=== PATIENT | male | born 1945 | race Caucasian/White ===

== ENCOUNTER → 2019-08-12 09:30 | Outpatient (BNVA) | payer MEDICARE, SELFPAY | PROVIDERS: Family Provider Nurse Practitioner; PCP Nurse Practitioner; Visit Provider Nurse Practitioner | DX: I10 Essential (primary) hypertension (principal); E78.5 Hyperlipidemia, unspecified | CPT/HCPCS: 80053; 80061; 82306 ==

== ENCOUNTER → 2020-06-27 09:14 | Outpatient (BNVA) | payer MEDICARE, SELFPAY | PROVIDERS: Family Provider Nurse Practitioner; PCP Nurse Practitioner; Visit Provider Nurse Practitioner | DX: E55.9 Vitamin D deficiency, unspecified (principal); I10 Essential (primary) hypertension | CPT/HCPCS: 80053; 80061; 82306; 85025 ==

== ENCOUNTER → 2021-01-09 09:17 | Outpatient (BNVA) | payer MEDICARE, SELFPAY | PROVIDERS: Family Provider Nurse Practitioner; PCP Nurse Practitioner; Visit Provider Nurse Practitioner | DX: I10 Essential (primary) hypertension (principal); E55.9 Vitamin D deficiency, unspecified; E78.5 Hyperlipidemia, unspecified; I65.21 Occlusion and stenosis of right carotid artery | CPT/HCPCS: 80053; 80061; 82306; 84443; 85025 ==

== ENCOUNTER 2021-02-20 12:42 | Outpatient (CLI) | payer MEDICARE, SELFPAY ==
--- NOTE | 2021-02-20 13:30 | USCV_ITS ---
Flynn Maxwell Age: 75 Gender: M : 1945 Exam Date: 02/20/2021 12:56 Ordering Phys: Aracelis Singh Technologist: Gabrielle Tran Exam Location: [facility] – [place] Indication: RECHECK RCCA STENOSIS Risk Factors: Unknown Previous Vascular Surgery: None Right Brachial BP: / Left Brachial BP: / Right Left Velocity (cm/s) Spectral Plaque Velocity (cm/s) Spectral Plaque Syst/Diast Broadening Syst/Diast Broadening / Prox CCA 83.00 / 21.70 45.30/ 12.60 Mid CCA 50.40 / 8.90 47.90/ 7.00 Hetro Distal CCA 54.90 / 7.70 619.40/132.70 Hetro Prox ICA 68.90 / 12.80 687.30/128.00 Hetro Mid ICA 113.45/ 19.25 446.10/99.50 Distal ICA 99.50 / 20.30 106.00 Hetro ECA 61.87 15.18 ICA/CCA 2.53 Antegrade Vertebral Antegrade 92.00/ 21.10 cm/s 57.80/ 21.40 cm/s Tri Subclavian Tri 74.00 167.7 0 CONCLUSIONS High grade Right ICA stenosis with markedly elevated velocities. Recommend further evaluation with CTA.. Severe atheromatous plaque right carotid bulb/ICA. Left ICA stenosis <50%. Mild atheromatous plaque left carotid bulb/ICA. Normal antegrade Doppler flow noted in the right vertebral artery. Normal antegrade Doppler flow noted in the left vertebral artery. Gustavo Jaffe MD (Electronically Signed) Final Date: 20 February 2021 14:04 S
== END 2021-02-20 12:43 | disposition home or self-care (01) ==
LOC: RAD 12:48
PROVIDERS: PCP Nurse Practitioner; Visit Provider Nurse Practitioner
DX: I65.23 Occlusion and stenosis of bilateral carotid arteries (principal)
CPT/HCPCS: 93880

== ENCOUNTER 2021-03-08 07:46 | Outpatient (CLI) | payer MEDICARE, SELFPAY ==
--- NOTE | 2021-03-08 08:00 | CT_ITS ---
WS: [id number] CT ANGIOGRAM CAROTID ARTERIES HISTORY: I65.21 - Occlusion and stenosis of right carotid artery TECHNIQUE: CT angiogram is performed of the carotid arteries. During arterial injection imaging is ob tained from the skull base to the aortic arch in 1.25 mm imaging. Coronal and sagittal reformats are submitted, MIP imaging also reviewed. Additional multiplanar reformats of the carotid arteries are dillard bmitted. NASCET criteria utilized. All CT scans at [facility] use at least one of these d ose optimization techniques: automated exposure control; mA and/or kV adjustment per patient size (in cludes targeted exams where dose is matched to clinical indication); or iterative reconstruction. CONTRAST: Omnipaque 350; 95 mL IV. DLP: 968.12 mGycm COMPARISON: Carotid ultrasound 02/20/2021 Right carotid: Common carotid artery: Arises normally from the innominate artery. Calcified plaque and intimal thick ening is moderate at the bifurcation. Internal carotid artery: Large amount of calcified plaque and intimal thickening at the bifurcation. High-grade stenosis of the proximal RIGHT ICA. Stenosis 70-99%. External carotid artery: Patent with calcification proximally. Left carotid: Common carotid artery: Arises normally from the aortic arch. No significant stenosis. Internal carotid artery: Small amount of calcification at the bifurcation extending into the proximal ICA. ICA is small caliber with no high-grade stenosis. External carotid artery: Calcified plaque proximally with no stones or occlusion. Right vertebral artery: Unremarkable. Left vertebral artery: Small caliber LEFT vertebral artery. No occlusions. Subclavian arteries: No stenosis or abnormality identified. Upper thorax: Chronic emphysema. Thyroid gland: Normal. Osseous structures: Degenerative spondylitic changes in the cervical spine. No fractures. Skull base: Hypoplastic or atherosclerotic advanced disease within the LEFT A1 segment. CT/CT angio neck 06231 IMPRESSION: 1. Proximal RIGHT ICA stenosis 70-99%. Corresponds to the ultrasound findings. 2. Less than 50% stenosis LEFT ICA. 3. LEFT A1 segment hypoplasia or moderate atherosclerotic disease.
[2021-03-08 08:23] LABS: Blood Urea Nitrogen 10 mg/dL (8-23)
[2021-03-08] MEDS: iohexol 350 mg/mL 100 mL Btl IV (08:33)
== END 2021-03-08 07:47 | disposition home or self-care (01) ==
PROVIDERS: PCP Nurse Practitioner; Visit Provider Nurse Practitioner
DX: I65.23 Occlusion and stenosis of bilateral carotid arteries (principal)
CPT/HCPCS: 70498; 82565; 84520; Q9967

== ENCOUNTER 2021-04-17 14:28 | Inpatient (IN) | payer MEDICARE, SELFPAY ==
[2021-04-11 09:14] VITALS: BMI 27.5
--- NOTE | 2021-04-11 09:20 | ECG_ITS ---
[facility] Test Date: 2021-04-11 Pat Name: Flynn Maxwell Department: Room: Gender: Male Claims Adjuster: : 1945 Requested By: Anthony Phipps Order Number: [id number] Reading MD: SALMA TORIBIO Measurements Intervals [place] Rate: 72 P: 37 IN: 187 QRS: -22 QRSD: 94 T: 25 QT: 399 QTc: 438 Interpretive Statements SINUS RHYTHM ANTEROSEPTAL MYOCARDIAL INFARCTION , OF INDETERMINATE AGE [40+ ms Q WAVE IN V1-V4] No previous ECG available for comparison Electronically Signed On 04-11-2021 19:29:24 CDT by SALMA TORIBIO [email or web address]
[2021-04-11 10:00] LABS: Basophils # 0.1 10^3/uL (0.0-0.1); Basophils % 0.7 %; Eosinophils # 0.1 10^3/uL (0.0-0.8); Eosinophils % 1.2 %; Hematocrit 43.3 % (42.0-52.0); Hemoglobin 14.8 g/dL (11.7-16.6); Lymphocytes # 1.1 10^3/uL (0.8-4.8); Mean Corpuscular HGB Conc 34.2 g/dL (30.0-36.0); Mean Corpuscular Hemoglobin 30.6 pg (28.0-34.0); Mean Corpuscular Volume 89.5 fl (80-94); Mean Platelet Volume 9.5 fL (7.4-10.4); Monocytes # 1.1 10^3/uL (0.2-0.9); Monocytes % 11.1 %; Neutrophils # 7.41 10^3/uL (1.8-7.7); Nucleated Red Blood Cells % 0 %; Platelet Count 292 10^3/cmm (130-400); Red Blood Count 4.84 10^6/uL (4.1-5.3); Red Cell Distribution Width 11.9 % (12.1-15.1); White Blood Count 9.9 10^3/uL (4.0-10.0)
[2021-04-11 10:14] LABS: Anion Gap 13.5 (5-19); Blood Urea Nitrogen 9 mg/dL (8-23); Calcium 9.3 mg/dL (8.5-10.5); Carbon Dioxide 29 mmol/L (22-29); Chloride 88 mmol/L (98-107); Glucose 117 mg/dL (65-115); Osmolality Calculated 264 mOsm/kg (285-295); Potassium 3.5 mmol/L (3.5-5.1); Sodium 127 mmol/L (136-145)
[2021-04-11 10:35] LABS: Add Urine Microscopic? NO; Charge for UA Resulting for Rev
[2021-04-11 10:58] LABS: Bilirubin Urine Neg (Negative); Blood Urine Neg (Negative); Glucose Urine UA Norm (Normal); Ketones Urine Negative (Negative); Leukocyte Esterase Urine Negative (Negative); Nitrate Urine Negative (Negative); Protein Urine Neg (Negative); Sulfosalicylic Acid Urine Negative (Negative); Urine Appearance Clear (CLEAR); Urine Color Straw (Yellow); Urobilinogen Urine Norm (Negative); pH Urine 8 (5-7)
--- NOTE | 2021-04-11 16:01 | P.ANESASSM_ITS ---
Pre-Anesthetic Assessment Pre-Anesthetic Assessment: Height/Weight: Height 1.78 m Weight 87.09 kg Proposed Procedure: Operation Date: 04/16/21 08:30 Proposed Procedures p Carotid Endarterectomy(Right) - Alexandre Denise MD Was Beta Frankie taken within 24 hours: N/A Was Clonidine taken within 24 hours: N/A Social: Social History: Tobacco and No alcohol Exam: Pre-Anes Outpt Exam: alert, oriented x 3, clear to auscultation bilaterally and regular rate & rhythm Airway: Submandibular: WNL Cervical ROM: WNL MP: 2 Dentition: False and Partials Pulmonary: Pulmonary: COPD CV/HEM: CV/HEM: HTN and PVD Metabolic: Metabolic: Hyperlipidemia Anesthetic Plan: ASA status: 3 Anesthesia: General Other: A.line Risk of > 500 ml blood loss (7ml/kg in children): No PFSH Anesthesia PFSH: Medical History Benign essential hypertension with target blood pressure below 140/90 Carotid stenosis, right Dyslipidemia History of basal cell cancer 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 Patton Family History Other Cancer Diabetes Hypertension Social History Second hand smoke exposure: No Smoking risk assessment/counseling performed?: No Alcohol intake: never Desire information about alcohol rehabilitation?: No Counseling given: No Desire information about substance/drug rehabilitation?: No Counseling given: No Adopted: No Caregiver/support person: No Lives independently: Yes Household members: spouse Housing: House Marital status: service: No Current occupational status: retired History of recent travel: No Current gender identity: Male Data Anesthesia CBC & Chem 7: 04/11/21 09:40 04/11/21 09:40 Other Labs: Laboratory Results - last 48 hr 04/11/21 04/11/21 04/11/21 09:40 09:40 09:40 WBC 9.9 RBC 4.84 Hgb 14.8 Hct 43.3 MCV 89.5 MCH 30.6 MCHC 34.2 RDW 11.9 L Plt Count 292 MPV 9.5 Neut % (Auto) 75.0 Lymph % (Auto) 11.0 [place] % (Auto) 11.1 Eos % (Auto) 1.2 Baso % (Auto) 0.7 Neut # (Auto) 7.41 Lymph # (Auto) 1.1 [place] # (Auto) 1.1 H Eos # (Auto) 0.1 Baso # (Auto) 0.1 Nucleated RBC % (auto) 0 Nucleated RBCs # 0.0 Sodium 127 L Potassium 3.5 Chloride 88 L Carbon Dioxide 29 Anion Gap 13.5 BUN 9 Creatinine 0.7 GFR Calculation Not Reportable Glucose 117 H Calculated Osmolality 264 L Calcium 9.3 Urine Color Urine Appearance Urine pH Ur Specific [place] Urine Protein Urine Glucose (UA) Urine Ketones Urine Blood Urine Nitrate Urine Bilirubin Prot Sulfosalicylic Acd Urine Urobilinogen Ur Leukocyte Esterase Blood Type O Positive Rho(D) Type Positive Antibody Screen Negative Crossmatch See Detail 04/11/21 09:50 WBC RBC Hgb Hct MCV MCH MCHC RDW Plt Count MPV Neut % (Auto) Lymph % (Auto) [place] % (Auto) Eos % (Auto) Baso % (Auto) Neut # (Auto) Lymph # (Auto) [place] # (Auto) Eos # (Auto) Baso # (Auto) Nucleated RBC % (auto) Nucleated RBCs # Sodium Potassium Chloride Carbon Dioxide Anion Gap BUN Creatinine GFR Calculation Glucose Calculated Osmolality Calcium Urine Color Straw Urine Appearance Clear Urine pH 8 H Ur Specific [place] 1.010 Urine Protein Neg Urine Glucose (UA) Norm Urine Ketones Negative Urine Blood Neg Urine Nitrate Negative Urine Bilirubin Neg Prot Sulfosalicylic Acd Negative Urine Urobilinogen Norm Ur Leukocyte Esterase Negative Blood Type Rho(D) Type Antibody Screen Crossmatch Cardiac Studies: No Data to Display
[2021-04-12 13:36] LABS: Coronavirus Test Green County Not Detected
[2021-04-17] VITALS (44 sets, daily range): BP systolic 123–208; BP diastolic 58–98; PULSE 57–108; RESP 14–27; TEMP 36.3–36.4; O2SAT 89–98; BMI 27.2
--- NOTE | 2021-04-17 10:48 | XRR_ITS ---
PROCEDURE INFORMATION: Exam: XR Chest Exam date and time: 04/17/2021 10:48 AM Age: 76 years old Clinical indication: Screening exam; Other screening; Patient HX: Pre-op; Carotid surgery; Additional info: Carotid artery stenosis/history of tobacco use TECHNIQUE: Imaging protocol: XR of the chest. Views: 2 views. COMPARISON: CT angio neck [id number] 03/08/2021 8:27 AM FINDINGS: Lungs: Unremarkable. No consolidation. Pleural spaces: Unremarkable. No pleural effusion. No pneumothorax. Heart/Mediastinum: Unremarkable. No cardiomegaly. Bones/joints: Unremarkable. XR/XR chest 2V* [id number] IMPRESSION: No acute findings.
--- NOTE | 2021-04-17 11:40 | P.HP_ITS ---
Providers/Chief Complaint Admitting Physician: Dr. Denise/cardiothoracic surgery Primary Care Provider: Aracelis Singh, GEOPHYSICAL PARTY CHIEF-C Chief Complaint: Carotid stenosis History of Present Illness Flynn Maxwell is a 76 year old male who was originally referred to our service by Ms. Aracelis Singh for surgical opinion concerning a high-grade right ICA stenosis, which Mr. Maxwell has known about for at least 4 years from prior duplex imaging. He has been caring for his , who has medical issues, and has been reluctant to consider interventions. Does have a family history for debilitating stroke in his father at age 74, though he has had no personal history for amaurosis, TIA or CVA. Carotid duplex study of February 20 confirmed a high-grade lesion of the right side with velocities over 600 cm/s. CTA of the neck of March 08 confirmed a high-grade proximal right ICA stenosis tween 70 and 99% with substantial calcifications. Because of these findings, we have recommended consideration for elective surgical intervention to reduce his statistical increased risk for spontaneous CVA related to his high-grade lesion. Appropriate arrangements have been made to assist with care for his , therefore, he wishes to proceed with plans for intervention. Review of Systems Const: Denies: fever(s), chills, change in appetite, change in weight, fatigue or night sweats Eyes: Denies: change in vision or blurry vision ENMT: Denies: odynophagia or hoarseness Card: Denies: chest pain, palpitations, irregular heart rhythm or edema Resp: Denies: dyspnea or productive cough GI: Denies: abdominal pain, nausea, vomiting, dysphagia, heartburn or change in bowel habits : Denies: difficulty urinating, dysuria, urinary frequency, urinary urgency or urinary hesitancy Musc: Denies: extremity pain or extremity swelling Skin/Breast: Reports: other (Visit for basal cell carcinoma); Denies: rash Neuro: Denies: headache(s), numbness in extremities, weakness in extremities or sensory changes Psych: Denies: anxiety, depression or change in appetite Endo: Denies: polyuria, polydipsia or cold intolerance Sean/Lymph: Denies: easy bruising, easy bleeding, petechiae or enlarged lymph nodes Medications/Allergies Home Medications Medication Instructions Recorded Confirmed Last Taken Type aspirin 81 mg tablet,delayed 81 mg PO QDAY #30 tab 08/12/19 04/17/21 04/12/21 Rx release amlodipine 5 mg tablet 5 mg PO QDAY #30 tab 01/09/21 04/17/21 04/16/21 Rx chlorthalidone 25 mg tablet 25 mg PO QDAY #30 tab 01/09/21 04/11/21 Unknown Rx lisinopril 5 mg tablet 5 mg PO QDAY #30 tab 01/09/21 04/17/21 Unknown Rx rosuvastatin 40 mg tablet 40 mg PO QDAY #30 tab 01/09/21 04/17/21 Unknown Rx clopidogrel 75 mg tablet 75 mg PO DAILY #30 tab 03/09/21 04/11/21 04/12/21 Rx evolocumab 140 mg/mL subcutaneous 140 mg SUBCUT .every 14 days #2 ml 03/09/21 04/17/21 Unknown Rx pen injector Allergies Allergy/AdvReac Type Severity Reaction Status Date / Time No Known Allergies Allergy Unverified 04/17/21 11:23 PFSH Acute PFSH: Medical History Benign essential hypertension with target blood pressure below 140/90 Carotid stenosis, right Dyslipidemia History of basal cell cancer Left denominational 12/2016 Vitamin D insufficiency Surgical History History of basal cell carcinoma excision Left denominational 12/2016 Dr. Patton Family History Other Cancer Diabetes Hypertension Social History Second hand smoke exposure: No Smoking risk assessment/counseling performed?: No Alcohol intake: never Desire information about alcohol rehabilitation?: No Counseling given: No Desire information about substance/drug rehabilitation?: No Counseling given: No Adopted: No Caregiver/support person: No Lives independently: Yes Household members: spouse Housing: House Marital status: service: No Current occupational status: retired History of recent travel: No Current gender identity: Male Vitals/I&O/Wt Last Vital Signs Temp 97.3 F L 04/17/21 11:13 Pulse 86 04/17/21 11:13 Resp 18 04/17/21 11:13 BP 208/98 04/17/21 11:13 Pulse Ox 98 04/17/21 11:13 Physical Exam Const: COMMON NORMALS: patient oriented x3 and alert ORIENTATI ON/CONSCIOUSNESS: Yes oriented to person, Yes oriented to place and Yes oriented to time HENMT: COMMON NORMALS: normocephalic HEAD & SCALP: normocephalic Neck/C-Spine: COMMON NORMALS: full ROM, supple and no JVD GENERAL: Yes trachea midline CAROTIDS: Yes bruit positive right (High-pitched and short) CERVICAL SPINE: Yes cervical ROM normal Chest: COMMONS NORMALS: normal inspection of the chest and normal palpation of entire chest wall Resp: COMMON NORMALS: normal respiratory effort, No use of accessory muscles, clear to auscultation bilaterally and percussion normal EFFORT & INSPECTION: Yes able to speak in complete sentences and Yes symmetric chest movement AUSCULTATION: clear to auscultation bilaterally PERCUSSION: percussion normal Cardio: COMMON NORMALS: no JVD, regular rate, regular rhythm, S1 normal heart sound present, S2 normal heart sound present, No gallops present (Cardio), No murmurs present (Cardio), No rub (Cardio) and Peripheral pulses 2+ throughout JUGULAR VENOUS DISTENTION: no JVD RATE: regular rate RHYTHM: regular rhythm HEART SOUNDS: S1 normal heart sound present and S2 normal heart sound present PERIPHERAL PULSES: Peripheral pulses 2+ throughout Neuro: COMMON NORMALS: patient oriented x3, no focal motor deficits and no sensory deficits noted SENSORIUM/ORIENTATION: Yes alert, Yes oriented to person, Yes oriented to place and Yes oriented to time GAIT: Yes Normal gait present Data : 04/11/21 09:40 04/11/21 09:40 A&P Assessment and plan (1) Carotid stenosis, right: High-grade right ICA stenosis. Radiographic interpretation is 70 to 99%, though visually with 3D reconstruction, the stenosis appears to be approximately 90%. Considerations for elective repair to reduce statistical increased risk for spontaneous CVA was carefully discussed with Mr. Maxwell. He does wish to proceed. Details and risks of the procedure were carefully and frankly discussed. Risks reviewed include the possibility of , stroke, heart attack, major bleeding, infection, pneumonia, temporary or permanent hoarseness, deviation of the ton rosalia, asymmetry of the face, paresthesias of the face, organ failure, failure to benefit, prolonged hospital stay, pain after the procedure, need for further procedures, inability to complete the procedure, and need for long-term followup. All questions were answered. Appropriate consents have been provided for review and signature. His was present during my examination and interview. 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
[2021-04-17] MEDS: sodium chloride 0.9% 1,000 ML 30 ML IV (11:42)
--- NOTE | 2021-04-17 11:50 | P.ANESUD_ITS ---
Pre-Anesthetic Update Pre-Anesthetic Assessment: Date of Surgery/Procedure: 04/17/21 Preop Nicole gnosis: Right carotid artery stenosis Proposed Procedure: Operation Date: 04/17/21 12:00 Proposed Procedures p Carotid Endarterectomy(Right) - Alexandre Denise MD Any changes to Pre-Anesthetic Assessment?: No Last Intake: Intake Last Liquid Date 04/16/21 Last Liquid Time 19:00 Last Solid Date 04/16/21 Last Solid Time 18:00 Vitals: Temperature 97.3 F L 04/17/21 11:13 Pulse Rate 86 04/17/21 11:13 Respiratory Rate 18 04/17/21 11:13 Blood Pressure 208/98 04/17/21 11:13 Blood Pressure Bria n 134 04/17/21 11:13 Pulse Oximetry 98 04/17/21 11:13 Oxygen Delivery Me thod 04/17/21 11:14 Exam: Pre-Anes Outpt Exam: alert, oriented x 3 and clear to auscultation bilaterally Cardiac Studies: No Data to Display
[2021-04-17] MEDS: vancomycin 1,000 MG SDV 1000 MG IRRIGATION (12:39)
[2021-04-17] MEDS: heparin, porcine 1,000 unit/mL INJ 10 mL 2000 UNIT IRRIGATION (12:39)
--- NOTE | 2021-04-17 15:03 | P.OP_ITS ---
Operative Report Date of procedure: April 17, 2021 Pre-op Diagnosis: Right carotid artery stenosis Post-op diagnosis: same Procedure Done: Right carotid endarterectomy with patch angioplasty Implants: Hemashield patch Specimens removed/disposition: Right carotid artery plaque Surgeon: Alexandre Denise Anesthesia: General Estimated blood loss (mL): 50 Complications: None: Neurologically intact postop Disposition: ICU Brief History: Mr. Maxwell is a 76-year-old gentleman referred to our service by Ms. Aracelis Singh due to a high-grade right ICA stenosis which has been known for several years. Carotid duplex imaging reveals increasing velocities up to over 600 cm/s. CTA of the neck confirmed a high-grade calcific lesion of the proximal right ICA at the bifurcation. Carotid endarterectomy was recommended to reduce his statistical increased risk for spontaneous CVA related to his high-grade lesion. Details the risk of the procedure were carefully discussed. Appropriate consents have been reviewed and signed. Procedure: Mr. Maxwell was placed on the OR table and underwent general endotra cheal anesthesia with a neurological monitoring endotracheal tube as well as placement of a right radial arterial line. Bihemispheric monitoring pads were placed as well as grounding and sensing pads for nerve conduction evaluation during neck dissection.The entire upper chest and right neck were sterilely prepped and draped. Incision was made along the anterior border of the sternomastoid muscle and carried down to the platysma with cautery. Dissection from this point forward was carried out utilizing Metzenbaum scissors and limited use of bipolar cautery. The internal jugular vein was dissected free and the facial vein was ligated, oversewn, and divided. Dissection was continued down through the ansa cervicalis with preservation of major branches. Minor branches were divided if required to allow for adequate exposure. Nerve conduction evaluation was performed throughout the dissection for protection of the recurrent nerve. We subsequently reached the common carotid artery. Dissection was then continued proximally to distally across the bifurcation. Vessel loops were placed around the common carotid artery, internal carotid artery, and external carotid artery. Distally, the base of the hypoglossal nerve could be identified and was protected. The internal carotid artery disease went fairly high and extended above the level of the mandibular angle. This did require some traction in this region, but great care was taken to minimize pressure to the hypoglossal nerve, which was protected. Care was taken during this dissection to avoid injury to the vagus nerve. The patient was then heparinized with 10,000 units. The systolic blood pressure was elevated to 160. Following this, in a rapid sequenced fashion, the distal internal carotid artery was clamped followed by clamping of the common carotid artery and external carotid artery. #11 scalpel blade was used to open the common carotid artery proximally. Candelario scissors were then utilized to extend this arteriotomy across the distal common carotid artery and ulcerated very stenotic plaque and continue this further at the bifurcation across the calcific plaque in the internal carotid artery until we had reached normal intima. The internal carotid artery clamp was briefly flashed with evidence of brisk back bleeding, therefore we elected not to shunt. It should be noted that bi- hemispheric oximetry was recorded throughout the procedure. Next, a freer elevator was utilized to create a dissection plane the plaque from intima at the proximal portion of the arteriotomy. This was then divided with a #11 scalpel blade. This plaque was then further dissected along the intimal plane proximally to distally across the bifurcation. Utilizing an everting technique, plaque was removed from the external carotid artery with brisk flow. This plaque was then dissected free up the internal carotid artery to a feathered edge. Heparinized saline solution was utilized to remove any loose debris. Next, a Hemashield patch was brought into the field and sewn into position utilizing a running 6-0 Prolene suture, thereby completing our patch angioplasty. At the completion of the patch, the external carotid artery was opened followed by the common carotid artery and finally the internal carotid artery, thereby reestablishing cerebral flow. Areas of extravasation were repaired with 6-0 Prolene suture. After 5 minutes, heparin was reversed with protamine. Hemostasis was confirmed. The wound was irrigated with antibiotic solution. A small, flat, Neo-Johnson drain was placed in the wound and connected to bulb suction. Sponge and needle count was correct. The wound was then closed in 2 layers of 3-0 Vicryl suture. Skin was reapproximated in a subcuticular manner with 4-0 Monocryl suture. A pressure dressing was then applied. He was awakened from anesthesia and spontaneous movement of all extremities as well as movement to command was noted. He was then transferred to the ICU in stable condition. I did guidance counselor with his and son at completion of the procedure. Mr. Maxwell will be monitored in the ICU for the next 24 hours.
[2021-04-17] MEDS: lactated ringers 1,000 ML 75 ML IV (16:09)
[2021-04-17] MEDS: aspirin 81 mg Chew Tablet PO (17:19)
--- NOTE | 2021-04-17 20:34 | PC.NURSE ---
NURSING NOTE: ARTERIAL LINE REMOVAL: AT 20:40 TODAY, ARTERIAL LINE TO RIGHT WRIST REMOVED PER THIS NURSE. CATHETER FULLY INTACT. NO REDNESS, DRAINAGE, OR SWELLING AT SITE. PT TOLERATED PROCEDURE WITHOUT DISTRESS. PRESSURE HELD FOR 10 MINUTES. NO BLEEDING NOTED AT SIGHT. ALL VS AND ASSESSMENTS CHARTED.
[2021-04-18] VITALS (28 sets, daily range): BP systolic 136–190; BP diastolic 61–93; PULSE 56–93; RESP 14–25; TEMP 36.6–36.9; O2SAT 91–99
[2021-04-18] MEDS: lactated ringers 1,000 ML 75 ML IV (03:33)
--- NOTE | 2021-04-18 06:24 | PC.NURSE ---
JAMES DRAN REMOVAL: DR. TERRAZAS IN @ 0620 THIS MORNING TO REMOVE JAMES DRAIN TO RIGHT CAROTID INCISION. PT TOLERATED PROCEDURE WELL AND GUAZE DRESSING APPLIED PER PHYSICIAN. ALL VS AND ASSESSMENTS CHARTED.
--- NOTE | 2021-04-18 07:01 | P.PN_ITS ---
Subjective Subjective: Interval history: POD #1 status post right carotid endarterectomy. Uneventful night. Neurologically intact. JAMES drain output is low. Voice quality is normal. No swallowing difficulties. Vitals/I&O/Wt Last Vital Signs Temp 98.5 F 04/18/21 04:00 Pulse 69 04/18/21 06:00 Resp 19 H 04/18/21 06:00 BP 148/93 04/18/21 06:00 Pulse Ox 94 04/18/21 05:00 04/17/21 04/18/21 04/18/21 22:59 06:59 14:59 Intake Total 1260 / 1320 915 / 2235 Output Total 1000 / 1000 700 / 1700 Balance 260 / 320 215 / 535 Weight last 48 hrs Weight 190 lb Physical Exam Neck/C-Spine: OTHER: Surgical dressing removed. JAMES drain removed. Incision clean, dry, and intact. No swelling. New dressing applied. Neuro: COMMON NORMALS: no focal motor deficits and no sensory deficits noted OTHER: No facial asymmetry. Tongue is midline with protrusion. Voice quality is normal. No visual disturbances. Urinary Catheter Management^: [place]: Cath Placed During This Visit: yes Urinary Catheter Date of Insertion: 04/17/21 Urinary Catheter Time of Insertion: 13:17 Data : 04/11/21 09:40 04/11/21 09:40 A&P Assessment and plan (1) Status post carotid endarterectomy: Postop day #1 status post right carotid endarterectomy. Plan: We will discharge to home today with limited activities for 1 week. Schedule follow-up in my clinic in 1 week. 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
--- NOTE | 2021-04-18 07:07 | P.DS_ITS ---
Discharge Providers Date of Admission: 04/17/21 14:28 Date of Discharge: April 18, 2021 Attending Provider at Admission: Alexandre Denise MD Attending Provider at Discharge: Alexandre Denise MD Primary Care Provider: MIRIAN Barksdale Diagnoses at Discharge Discharge Diagnosis (1) Status post carotid endarterectomy: Status: Acute Reason for Visit Reason for Visit: Carotid stenosis Hospital Course Hospital Course Mr. Maxwell is a 76-year-old gentleman referred to our service by Ms. Aracelis Singh for a high-grade right carotid artery stenosis which have been previously documented by carotid duplex. He separately underwent CTA of the neck which con firmed a high-grade lesion of the proximal right internal carotid artery with heavy calcifications. Carotid endarterectomy was recommended to reduce his statistical increased risk for spontaneous CVA related to this high-grade lesion. He was electively admitted on April 17 and underwent right carotid endarterectomy with patch angioplasty. Postoperatively, he convalesced in the ICU where he remained neurologically intact. On postop day #1, with low JAMES drain output, the JAMES drain was removed. His incision is clean, dry, and intact. He remains neurologically intact with no voice quality changes or swallowing difficulties. He will be discharged home today in stable condition. He will have limited activity for the next 2 weeks to avoid heavy lifting or pulling. Discharge instructions have been carefully reviewed. I have also counseled with his and his son. Physical Exam Neck/C-Spine: COMMON NORMALS: no lymphadenopathy and supple OTHER: Right neck surgical incision is clean, dry, and intact. No swelling. Face is symmetrical. Tongue is midline with protrusion. Resp: COMMON NORMALS: normal respiratory effort, No retractions and clear to auscultation bilaterally EFFORT & INSPECTION: Yes able to speak in complete sentences and Yes symmetric chest movement AUSCULTATION: clear to auscultation bilaterally Cardio: COMMON NORMALS: regular rate, regular rhythm and S1 normal heart sound present RATE: regular rate RHYTHM: regular rhythm HEART SOUNDS: S1 normal heart sound present Extremity: COMMON NORMALS: no clubbing, cyanosis or edema Neuro: COMMON NORMALS: no focal motor deficits and no sensory deficits noted Urinary Catheter Management^: [place]: Cath Placed During This Visit: yes Urinary Catheter Date of Insertion: 04/17/21 Urinary Catheter Time of Insertion: 13:17 Discharge Data Data Completed and Pending: Completed Studies During Hospitalization Category Date Time Status XR chest 2V* 7104 6 Routine Exams 04/17/21 10:48 Completed Pending at discharge Category Date Time Status Leukocyte Reduced RBC Routine Lab 04/11/21 09:40 Results Type and Screen - Cardiac Routine Lab 04/11/21 09:40 Results Pathology: Surgic al [PTH] Routine Pth 04/17/21 13:34 Ordered Labs from last 24 hours 04/11/21 09:40 Blood Type O Positive Rho(D) Type Positive Antibody Screen Negative Crossmatch See Detail Vitals: Last Vital Signs Temp 98.5 F 04/18/21 04:00 Pulse 69 04/18/21 06:00 Resp 19 H 04/18/21 06:00 BP 148/93 04/18/21 06:00 Pulse Ox 94 04/18/21 05:00 Discharge Plan Discharge Patient Disposition: Home Condition: Stable Prescriptions: New hydrocodone-acetaminophen 5-325 mg Tablet 1 tab PO Q6H PRN (Reason: Moderate Pain) Qty: 20 RF: 0 Continued aspirin [Adult Low Dose Aspirin] 81 mg tablet,delayed release (DR/EC) 81 mg PO QDAY Qty: 30 RF: 5 amlodipine 5 mg tablet 5 mg PO QDAY Qty: 30 RF: 5 chlorthalidone 25 mg tablet 25 mg PO QDAY Qty: 30 RF: 5 lisinopril 5 mg tablet 5 mg PO QDAY Qty: 30 RF: 5 rosuvastatin 40 mg tablet 40 mg PO QDAY Qty: 30 RF: 5 Repatha SureClick 140 mg/mL pen injector 140 mg SUBCUT .every 14 days Qty: 2 RF: 2 clopidogrel [Plavix] 75 mg tablet 75 mg PO DAILY Qty: 30 RF: 2 Discharge Orders: Discharge Order (Routine); Ordered 04/18/21 Ordered By: Alexandre Denise Referrals: Alexandre Denise MD [Physician] - 1 week Discharge Diet: Usual diet Discharge Activity: Limit activity as instructed Patient Instructions: Opioid Safety Activity Restrictions/Additional Instructions: May remove bandage in 2 days May begin daily showers in 2 days No swimming or tub baths x 2 weeks No ointments on incision Report drainage, redness, heat, increased pain, or swelling to clinic Report any extremity weakness, fainting episodes, or difficulty speaking No heavy lifting or pulling x2 weeks Discharge Attestations Time Spent in Discharge Care*: less than 30 min Specific Discharge Activities: educating patient, discussing with case resolution specialist/social workers/dc planners, documenting/other paperwork and evaluating patient/reviewing data Status at Discharge: Cognitive status at discharge: cognitively intact , Behavioral status at discharge: cooperative , Functional status at discharge: independent ambulation Overall status at discharge: patient is back to baseline Quality Metrics Clinical Quality Measures During this hospital stay, did patient experience: None Coding Level of Care Code Acute Chg DC note Diagnoses Status post carotid endarterectomy Z98.890
--- NOTE | 2021-04-18 08:29 | ANE.PACU2 ---
Inpatient post-anesthesia follow up: Airway intact: Yes Vital signs: Temperature 98.5 F Pulse Rate 69 Respiratory Rate 19 Blood Pressure 148/93 Pulse Oximetry 94 Oxygen Delivery Me thod [ Room Air Current Rate & Del venkat] Oxygen Delivery Me thod Room Air Oxygen Flow Rate Fraction of Inspir ed Oxygen Hydration adequate: Yes Nausea and vomiting: No Pain level: 2 Mental status: Baseline
[2021-04-18] MEDS: amlodipine 5 mg Tablet PO (08:31)
[2021-04-18] MEDS: atorvastatin 40 mg Tablet 80 MG PO (08:31)
[2021-04-18] MEDS: aspirin 81 mg EC Tablet PO (08:31)
[2021-04-18] MEDS: lisinopril 5 mg Tablet PO (08:31)
[2021-04-18] MEDS: pantoprazole DR 40 mg Tablet PO (08:31)
[2021-04-18] MEDS: clopidogrel 75 mg Tablet PO (08:32)
--- NOTE | 2021-04-18 10:05 | PC.CHAP ---
Pastoral Care Encounter/Spiritual Assessment Type of Contact [] Declined automatic oven operator visit [] Patient/Family/Request visit [] Outpatient visit [] Follow-up visit [] Physician referral [] Code/Alert [x] Routine visit [] Staff referral [] Actively dying [x] Patient sleeping [] Family support [] [] Out of room [] Palliative care [] [] Receiving care in room [] Pre-surgical visit [] Trauma [] Long length of stay [x] ICU visit [] Other: Relational/Emotional Strength [] Patient feels connected with others/family/visitors/staff [] Distress [] Loneliness/isolation [] Abandonment Spirituality of Patient [] Person of Cristina [] Attends Jewish of their Cristina [] Believes in Prayer [] Reads Bible or Worship materials [] There are Spiritual issues to be addressed [employer] Agent Interventions [x] Prayer [] Active listening [] Non-anxious presence [] Spiritual/emotional support [] Crisis/trauma care [] Spiritual counseling [] Bereavement support [] Provided bereavement packet [] Provided Bible/devotional materials [] Provided toy/stuffed animal, coloring book to patient or family member [] Provided Communion [] Anointing/[place] [] Salvation [x] Completed spiritual assessment [] Other: Impact on Illness or Injury [] Angry [] Fearful [] Anxious [] Often cries [] Exhaustion [] Unable to work [] Unable to attend congregation [] Unable to walk/stand [] Unable to read [] Unable to drive [] Unable to eat/drink [] Unable to sleep [] Unable to be with family [] Patient intubated [] Other: Summary Time spent with patient
--- NOTE | 2021-04-19 09:11 | PC.SOCIAL ---
discharge follow up call made, spoke with patient. patient reports he is feeling good, not having to take pain medication. denies any redness or drainage from the incision site. patient is aware of follow up appointment with Dr. Denise. Patient is aware he can beginning showering in 2 days but not to soak for 2 weeks and no ointment on the incision.
== END 2021-04-18 10:31 | disposition home or self-care (01) | DRG 39 ==
LOC: ICU 14:29
PROVIDERS: Admitting Provider Thoracic Surgery (Cardiothoracic Vascular Surgery); PCP Nurse Practitioner; Visit Provider Thoracic Surgery (Cardiothoracic Vascular Surgery)
PROC: 03CK0ZZ Extirpation of Matter from Right Internal Carotid Artery, Open Approach (ICD-10-PCS; CPT 35301; principal; 2021-04-17 12:00)
DX: I65.21 Occlusion and stenosis of right carotid artery (principal); N40.0 Benign prostatic hyperplasia without lower urinary tract symptoms; E78.5 Hyperlipidemia, unspecified; Z85.828 Personal history of other malignant neoplasm of skin; Z79.82 Long term (current) use of aspirin; Z79.02 Long term (current) use of antithrombotics/antiplatelets
CPT/HCPCS: 71046; 80048; 81003; 85025; 86850; 86900; 86920; 87635; 88304; 93005; J0330; J0360; J0690; J1100; J1644; J2370; J2405; J2704; J2720; J3010; J3370; J3490; J7030

== ENCOUNTER 2021-06-19 12:22 | Outpatient (CLI) | payer MEDICARE, SELFPAY ==
--- NOTE | 2021-06-19 13:30 | USCV_ITS ---
Flynn Maxwell Age: 76 Gender: M : 1945 Exam Date: 06/19/2021 13:12 Ordering Phys: Alexandre Denise MD ([email or web address] [place] Technologist: Supriya Becerra Exam Location: [facility] [place] Indication: S/P RIGHT CEA [id number] AGO Risk Factors: Previous Vascular Surgery: Right Brachial BP: / Left Brachial BP: / Right Left Velocity (cm/s) Spectral Plaque Velocity (cm/s) Spectral Plaque Syst/Diast Broadening Syst/Diast Broadening 140.00/14.30 Prox CCA 121.10/ 18.00 79.40/ 11.00 Mid CCA 91.50 / 18.70 72.20/ 10.90 Distal CCA 81.60 / 14.30 89.40/ 15.80 Prox ICA 91.45 / 14.00 124.90/26.30 Mid ICA 100.00/ 28.20 130.10/31.60 Distal ICA 97.00 / 26.50 225.20 ECA 87.75 0.93 ICA/CCA 0.83 Antegrade Vertebral Antegrade 82.70/ 20.90 cm/s 40.40/ 7.80 cm/s Tri Subclavian Tri 155.1 0 FINDINGS Comparison:. 02/20/21 Status post right CEA. No residual stenosis right ICA. Minimal right carotid atherosclerosis. Bilateral antegrade vertebral arteries. CONCLUSIONS Bilateral ICA stenosis less than 50%. Resolved right ICA stenosis, post CEA. Minimal carotid atherosclerosis. Dr. Nancy Sanders DO (Electronically Signed) Final Date: 19 June 2021 13:45 S
== END 2021-06-19 12:23 | disposition home or self-care (01) ==
LOC: RAD 12:23
PROVIDERS: PCP Nurse Practitioner; Visit Provider Thoracic Surgery (Cardiothoracic Vascular Surgery)
DX: I65.23 Occlusion and stenosis of bilateral carotid arteries (principal)
CPT/HCPCS: 93880

== ENCOUNTER → 2022-05-01 11:21 | Outpatient (BNVA) | payer MEDICARE, SELFPAY | PROVIDERS: PCP Nurse Practitioner; Visit Provider Nurse Practitioner | DX: I10 Essential (primary) hypertension (principal); Z98.890 Other specified postprocedural states; E78.5 Hyperlipidemia, unspecified; E55.9 Vitamin D deficiency, unspecified | CPT/HCPCS: 80061; 82306; 85025 ==

== ENCOUNTER → 2022-11-21 15:11 | Outpatient (BNVA) | payer MEDICARE, SELFPAY | PROVIDERS: PCP Nurse Practitioner; Visit Provider Nurse Practitioner | DX: I10 Essential (primary) hypertension (principal); E55.9 Vitamin D deficiency, unspecified | CPT/HCPCS: 80053; 80061; 82306; 84443 ==

== ENCOUNTER → 2023-03-11 09:53 | Outpatient (BNVA) | payer MEDICARE, SELFPAY | PROVIDERS: PCP Nurse Practitioner; Visit Provider Nurse Practitioner | DX: E55.9 Vitamin D deficiency, unspecified (principal); I10 Essential (primary) hypertension; E78.5 Hyperlipidemia, unspecified; Z98.890 Other specified postprocedural states | CPT/HCPCS: 80053; 80061; 82306; 85025 ==

== ENCOUNTER → 2023-08-19 08:49 | Outpatient (BNVA) | payer MEDICARE, SELFPAY | PROVIDERS: PCP Nurse Practitioner; Visit Provider Nurse Practitioner | DX: I10 Essential (primary) hypertension (principal); E78.5 Hyperlipidemia, unspecified; E55.9 Vitamin D deficiency, unspecified; Z98.890 Other specified postprocedural states; R23.8 Other skin changes | CPT/HCPCS: 80053; 80061; 82306; 84443; 85025 ==

== ENCOUNTER → 2023-12-30 09:14 | Outpatient (BNVA) | payer MEDICARE, SELFPAY | PROVIDERS: PCP Nurse Practitioner; Visit Provider Nurse Practitioner | DX: I10 Essential (primary) hypertension (principal); E55.9 Vitamin D deficiency, unspecified; E78.5 Hyperlipidemia, unspecified | CPT/HCPCS: 80053; 80061; 82306; 85025 ==

== ENCOUNTER → 2024-11-09 09:00 | Outpatient (BNVA) | payer MEDICARE, SELFPAY | PROVIDERS: PCP Nurse Practitioner; Visit Provider Nurse Practitioner | DX: I10 Essential (primary) hypertension (principal); E78.5 Hyperlipidemia, unspecified; Z98.890 Other specified postprocedural states; E55.9 Vitamin D deficiency, unspecified; R23.8 Other skin changes; G47.00 Insomnia, unspecified; R73.9 Hyperglycemia, unspecified | CPT/HCPCS: 80053; 80061; 82306; 83036 ==

== ENCOUNTER → 2025-04-19 09:23 | Outpatient (BNVA) | payer MEDICARE, SELFPAY | PROVIDERS: PCP Nurse Practitioner; Visit Provider Nurse Practitioner | DX: I10 Essential (primary) hypertension (principal); E78.5 Hyperlipidemia, unspecified; E55.9 Vitamin D deficiency, unspecified | CPT/HCPCS: 80053; 80061; 82306; 82607; 84443 ==